=== PATIENT | female | born 1960 | race Caucasian/White ===

== ENCOUNTER 2023-08-11 12:33 | Inpatient (IN) | payer OTHER ==
--- NOTE | 2023-08-11 13:10 | ED ---
General Adult HPI - General Source: patient, RN notes reviewed Mode of arrival: ambulatory Limitations: no limitations <Lakhwinder Masters - Last Filed: 08/11/23 15:06> - General Source: RN notes reviewed, old records reviewed Limitations: no limitations - History of Present Illness -: days(s) Location: chest Radiation: non-radiation Severity scale (1-10): 4 Consistency: constant Improves with: none Worsens with: none Associated Symptoms: chest pain, cough, shortness of breath, weakness Treatments Prior to Arrival: none <Darren Zendejas - Last Filed: 08/17/23 22:03> - General Chief complaint: Upper Respiratory Infection Stated complaint: sob coughing Time Seen by Provider: 08/11/23 13:09 - History of Present Illness Initial comments: 63-year-old female presents emergency Department with chief complaint cough congestion 2 weeks. Patient states she's had increasing shortness of breath. States that she has thick sputum. Patient states that she does not have a history of CABG though she smoked for 20 years has not smoked in 5 years. Patient noted increasing wheezing. Patient reports fever, chills. Patient denies any abdominal pain no leg pain or leg swelling. Patient is not taking any recent Tylenol Motrin. (Lakhwinder Masters) This is a 63-year-old female to the ER for evaluation of chest pain shortness of breath as well as cough and congestion. Patient says it medical history denies any surgical history does have positive history of smoking, no sick contacts no travel history (Darren Zendejas) - Related Data Home Medications Medication Instructions Recorded Confirmed Acetylcysteine [Nac] 500 mg PO DAILY 08/11/23 08/11/23 guaiFENesin-DM 100-10MG/5ML 10 - 20 ml PO Q4H PRN MDD 60 ML 08/11/23 08/11/23 [Robitussin DM] Previous Rx's Medication Instructions Recorded Albuterol Inhaler [Ventolin Hfa 2 puff INHALATION RT-QID PRN 30 08/13/23 Inhaler] Days #1 each dexAMETHasone [Decadron] 6 mg PO DAILY 8 Days #8 tablet 08/13/23 guaiFENesin [Mucinex] 1,200 mg PO Q12HR 10 Days #20 tab 08/13/23 Allergies Allergy/AdvReac Type Severity Reaction Status Date / Time codeine Allergy Hallucinati Verified 08/11/23 12:44 ons doxycycline Allergy Rash/Hives Verified 08/11/23 12:44 Review of Systems ROS Other: All systems not noted in ROS Statement are negative. <TianLakhwinder chinchilla - Last Filed: 08/11/23 15:06> ROS Other: All systems not noted in ROS Statement are negative. <Draren Zendejas - Last Filed: 08/17/23 22:03> ROS Statement: Those systems with pertinent positive or pertinent negative responses have been documented in the HPI. Past Medical History Past Medical History: No Reported History History of Any Multi-Drug Resistant Organisms: None Reported Past Surgical History: No Surgical Hx Reported Past Psychological History: No Psychological Hx Reported Smoking Status: Never smoker Past Alcohol Use History: None Reported Past Drug Use History: None Reported <SonamLakhwinder - Last Filed: 08/11/23 15:06> General Exam General appearance: alert, in no apparent distress Head exam: Present: atraumatic, normocephalic, normal inspection Eye exam: Present: normal appearance, PERRL, EOMI. Absent: scleral icterus, conjunctival injection, periorbital swelling ENT exam: Present: normal exam, normal oropharynx, mucous membranes moist Neck exam: Present: normal inspection, full ROM. Absent: tenderness, meningismus, lymphadenopathy Respiratory exam: Present: wheezes. Absent: normal lung sounds bilaterally, respiratory distress, rales, rhonchi, stridor Cardiovascular Exam: Present: normal rhythm, tachycardia, normal heart sounds. Absent: systolic murmur, diastolic murmur, rubs, gallop, clicks GI/Abdominal exam: Present: soft, normal bowel sounds. Absent: distended, tenderness, guarding, rebound, rigid <Lakhwinder Masters Lexie - Last Filed: 08/11/23 15:06> General appearance: alert, in no apparent distress, anxious Head exam: Present: atraumatic, normocephalic, normal inspection Eye exam: Present: normal appearance, PERRL, EOMI. Absent: scleral icterus, conjunctival injection, periorbital swelling ENT exam: Present: normal exam, mucous membranes moist Neck exam: Present: normal inspection. Absent: tenderness, meningismus, lymphadenopathy Respiratory exam: Present: normal lung sounds bilaterally. Absent: respiratory distress, wheezes, rales, rhonchi, stridor Cardiovascular Exam: Present: regular rate, normal rhythm, normal heart sounds. Absent: systolic murmur, diastolic murmur, rubs, gallop, clicks GI/Abdominal exam: Present: soft, normal bowel sounds. Absent: distended, tenderness, guarding, rebound, rigid Extremities exam: Present: normal inspection, full ROM, normal capillary refill. Absent: tenderness, pedal edema, joint swelling, calf tenderness Back exam: Present: normal inspection Neurological exam: Present: alert, oriented X3, CN II-XII intact Psychiatric exam: Present: normal affect, normal mood Skin exam: Present: warm, dry, intact, normal color. Absent: rash <Darren Zendejas - Last Filed: 08/17/23 22:03> - General Exam Comments Initial Comments: Visual Physical Exam Vital signs reviewed General: Well-appearing, nontoxic, no acute distress. Head: Normocephalic, atraumatic Eyes: PERRLA, EOMI ENT: Airway patent Chest: Nonlabored breathing Skin: No visual rash, normal skin tone Neuro: Alert and oriented 3 Musculoskeletal: No gross abnormalities (Lakhwinder Masters) Course <Darren Zendejas B - Last Filed: 08/17/23 22:03> Vital Signs 08/11/23 08/11/23 08/11/23 12:42 13:53 13:54 Temperature 98.4 F 101.4 F H Pulse Rate 105 H 99 Respiratory 28 H 20 Rate Blood Pressure 100/63 O2 Sat by Pulse 93 L 93 L 93 L Oximetry 08/11/23 08/11/23 08/11/23 13:57 14:00 14:10 Temperature Pulse Rate Respiratory 20 Rate Blood Pressure O2 Sat by Pulse 94 L 91 L Oximetry 08/11/23 08/11/23 08/11/23 14:20 14:23 14:30 Temperature Pulse Rate 92 Respiratory Rate Blood Pressure O2 Sat by Pulse 93 L 98 Oximetry 08/11/23 08/11/23 08/11/23 14:40 14:43 15:58 Temperature 98.5 F Pulse Rate 96 Respiratory Rate Blood Pressure O2 Sat by Pulse 98 Oximetry 08/11/23 08/11/23 08/11/23 16:00 16:10 16:20 Temperature Pulse Rate Respiratory Rate Blood Pressure 116/66 116/66 O2 Sat by Pulse 90 L 90 L 93 L Oximetry 08/11/23 08/11/23 08/11/23 16:30 16:33 16:40 Temperature 99.8 F H Pulse Rate 87 Respiratory 18 Rate Blood Pressure 116/66 117/70 117/70 O2 Sat by Pulse 89 L 94 L 95 Oximetry 08/11/23 08/11/23 08/11/23 16:50 17:00 17:10 Temperature Pulse Rate Respiratory Rate Blood Pressure 117/70 117/70 119/72 O2 Sat by Pulse 95 92 L Oximetry 08/11/23 08/11/23 08/11/23 17:20 17:30 17:40 Temperature Pulse Rate Respiratory Rate Blood Pressure 119/72 119/72 114/66 O2 Sat by Pulse 92 L 93 L 92 L Oximetry 08/11/23 08/11/23 08/11/23 17:50 20:00 21:23 Temperature 99.9 F H 99.9 F H Pulse Rate 66 Respiratory 18 Rate Blood Pressure 114/66 119/65 O2 Sat by Pulse 81 L Oximetry 08/11/23 08/11/23 08/11/23 21:30 21:40 21:50 Temperature Pulse Rate 70 71 73 Respiratory Rate Blood Pressure 119/65 O2 Sat by Pulse Oximetry 08/11/23 08/11/23 08/11/23 22:00 22:10 22:20 Temperature Pulse Rate 74 81 71 Respiratory 18 Rate Blood Pressure O2 Sat by Pulse Oximetry 08/11/23 08/11/23 08/11/23 22:30 22:40 22:50 Temperature Pulse Rate 80 75 70 Respiratory Rate Blood Pressure O2 Sat by Pulse Oximetry 08/12/23 08/12/23 04:40 07:45 Temperature 99 F Pulse Rate 90 88 Respiratory 19 20 Rate Blood Pressure 97/68 93/69 O2 Sat by Pulse 93 L 94 L Oximetry - Reevaluation(s) Reevaluation #1: 08/11/23 22:15 Medical records reviewed (Darren Zendejas) Reevaluation #2: 08/11/23 22:15 Patient still feeling weak and short of breath (Darren Zendejas) Reevaluation #3: 08/11/23 22:15 Patient informed results questions answered (Darren Zendejas) Reevaluation #4: 08/11/23 22:15 Was pt. sent in by a medical professional or institution (HENRI Cohen, MARKETING EXECUTIVE, urgent care, hospital, or intermediate...) When possible be specific @ -no Did you speak to anyone other than the patient for history (EMS, parent, family, police, friend...)? What history was obtained from this source @ -no Did you review nursing and triage notes (agree or disagree)? Why? @ -agree Are old charts reviewed (outside hosp., previous admission, EMS record, old EKG, old radiological studies, urgent care reports/EKG's, intermediate records)? Report findings @ -yes Differential Diagnosis (chest pain, altered mental status, abdominal pain women, abdominal pain men, vaginal bleeding, weakness, fever, dyspnea, syncope, headache, dizziness, GI bleed, back pain, seizure, CVA, palpatations, mental health, musculoskeletal)? @ -prior EKG interpreted by me (3pts min.). @ -yes X-rays interpreted by me (1pt min.). @ -yes CT interpreted by me (1pt min.). @ -yes U/S interpreted by me (1pt. min.). @ -no What testing was considered but not performed or refused? (CT, X-rays, U/S, labs)? Why? @ -none What meds were considered but not given or refused? Why? @ -none Did you discuss the management of the patient with other professionals (professionals i.e. HENRI Cohen, MARKETING EXECUTIVE, lab, RT, psych nurse, social organization professor, manager heart, teacher, staff weapons officer, rn case manager hospice)? Give summary @ -no Was smoking cessation discussed for >3mins.? @ -no Was critical care preformed (if so, how long)? @ -no Were there social determinants of health that impacted care today? How? (Homelessness, low income, unemployed, alcoholism, drug addiction, transportat ion, low edu. Level, literacy, decrease access to med. care, half-way, rehab)? @ -none Was there de-escalation of care discussed even if they declined (Discuss DNR or withdrawal of care, Hospice)? DNR status @ -no What co-morbidities impacted this encounter? (DM, HTN, Smoking, COPD, CAD, Cancer, CVA, ARF, Chemo, Hep., AIDS, mental health diagnosis, sleep apnea, morbid obesity)? @ -none Was patient admitted / discharged? Hospital course, mention meds given and route, prescriptions, significant lab abnormalities, going to OR and other pertinent info. @ - 63 female will be admitted for pneumonia, coronavirus, lung mass with hyponatremia. Patient be admitted for further evaluation management Admitted Undiagnosed new problem with uncertain prognosis? @ -no Drug Therapy requiring intensive monitoring for toxicity (Heparin, Nitro, Insulin, Cardizem)? @ -no Were any procedures done? @ -no Diagnosis/symptom? @ -Pneumonia coronavirus with lung mass Acute, or Chronic, or Acute on Chronic? @ -Acute Uncomplicated (without systemic symptoms) or Complicated (systemic symptoms)? @ -Complicated Side effects of treatment? @ -no Exacerbation, Progression, or Severe Exacerbation? @ -exacerbation Poses a threat to life or bodily function? How? (Chest pain, [place], [place], pneumonia, PE, COPD, DKA, ARF, appy, cholecystitis, CVA, Diverticulitis, Homicidal, Suicidal, threat to staff... and all critical care pts) @ -yes with significant rust for disease (Darren Zendejas) Reevaluation #5: 08/11/23 22:16 Differential Dyspnea: Coronary syndrome, arrhythmia, tamponade, asthma, COPD, pulmonary embolism, pneumonia, pneumothorax, pulmonary effusion, anaphylaxis, diabetic ketoacidosis, flailed chest, pulmonary contusion, diaphragmatic rupture, anemia, neuromuscular, this is not meant to be an all-inclusive list. (Darren Zendejas) - Consultations Consultation #1: Spoke with [facility] were agrees to admit this patient (Darren Zendejas) Medical Decision Making - Lab Data Result diagrams: 08/11/23 13:52 08/11/23 13:52 - EKG Data -: EKG Interpreted by Me <Lakhwinder Masters - Last Filed: 08/11/23 15:06> - Lab Data Result diagrams: 08/13/23 06:36 08/13/23 06:36 - EKG Data -: EKG Interpreted by Me - Radiology Data Radiology results: report reviewed (Chest x-ray CT chest show likely lung mass), image reviewed <Darren Zendejas - Last Filed: 08/17/23 22:03> - Medical Decision Making I performed a quick note portion of this chart signed Lakhwinder Masters PA-C (Lakhwinder Masters) 63 female will be admitted for pneumonia, coronavirus, lung mass with hyponatremia. Patient be admitted for further evaluation management (Darren Zendejas) - Lab Data Lab Results 08/11/23 08/11/23 08/11/23 Range/Units 13:52 13:52 13:52 WBC 12.2 H (3.8-10.6) k/uL RBC 4.85 (3.80-5.40) m/uL Hgb 15.2 (11.4-16.0) gm/dL Hct 44.0 (34.0-46.0) % MCV 90.7 (80.0-100.0) fL MCH 31.2 (25.0-35.0) pg MCHC 34.5 (31.0-37.0) g/dL RDW 12.4 (11.5-15.5) % Plt Count 401 (150-450) k/uL MPV 7.7 Neutrophils % 76 % Lymphocytes % 12 % Monocytes % 8 % Eosinophils % 1 % Basophils % 0 % Neutrophils # 9.2 H (1.3-7.7) k/uL Lymphocytes # 1.4 (1.0-4.8) k/uL Monocytes # 1.0 (0-1.0) k/uL Eosinophils # 0.1 (0-0.7) k/uL Basophils # 0.0 (0-0.2) k/uL Sodium 129 L (137-145) mmol/L Potassium 4.1 (3.5-5.1) mmol/L Chloride 90 L (98-107) mmol/L Carbon Dioxide 27 (22-30) mmol/L Anion Gap 12 mmol/L BUN 10 (7-17) mg/dL Creatinine 0.62 (0.52-1.04) mg/dL Est GFR (CKD-EPI)AfAm >90 (>60 ml/min/1.73 sqM) Est GFR (CKD-EPI)NonAf >90 (>60 ml/min/1.73 sqM) Glucose 109 H (74-99) mg/dL Plasma Lactic Acid John 1.5 (0.7-2.0) mmol/L Calcium 9.2 (8.4-10.2) mg/dL Total Bilirubin 0.7 (0.2-1.3) mg/dL AST 46 H (14-36) U/L ALT 49 H (4-34) U/L Alkaline Phosphatase 99 (38-126) U/L NT-Pro-B Natriuret Pep 264 pg/mL Total Protein 6.7 (6.3-8.2) g/dL Albumin 3.9 (3.5-5.0) g/dL Influenza Type A (PCR) (Not Detectd) Influenza Type B (PCR) (Not Detectd) RSV (PCR) (Not Detectd) SARS-CoV-2 (PCR) (Not Detectd) 08/11/23 Range/Units 13:52 WBC (3.8-10.6) k/uL RBC (3.80-5.40) m/uL Hgb (11.4-16.0) gm/dL Hct (34.0-46.0) % MCV (80.0-100.0) fL MCH (25.0-35.0) pg MCHC (31.0-37.0) g/dL RDW (11.5-15.5) % Plt Count (150-450) k/uL MPV Neutrophils % % Lymphocytes % % Monocytes % % Eosinophils % % Basophils % % Neutrophils # (1.3-7.7) k/uL Lymphocytes # (1.0-4.8) k/uL Monocytes # (0-1.0) k/uL Eosinophils # (0-0.7) k/uL Basophils # (0-0.2) k/uL Sodium (137-145) mmol/L Potassium (3.5-5.1) mmol/L Chloride (98-107) mmol/L Carbon Dioxide (22-30) mmol/L Anion Gap mmol/L BUN (7-17) mg/dL Creatinine (0.52-1.04) mg/dL Est GFR (CKD-EPI)AfAm (>60 ml/min/1.73 sqM) Est GFR (CKD-EPI)NonAf (>60 ml/min/1.73 sqM) Glucose (74-99) mg/dL Plasma Lactic Acid John (0.7-2.0) mmol/L Calcium (8.4-10.2) mg/dL Total Bilirubin (0.2-1.3) mg/dL AST (14-36) U/L ALT (4-34) U/L Alkaline Phosphatase (38-126) U/L NT-Pro-B Natriuret Pep pg/mL Total Protein (6.3-8.2) g/dL Albumin (3.5-5.0) g/dL Influenza Type A (PCR) Not Detected (Not Detectd) Influenza Type B (PCR) Not Detected (Not Detectd) RSV (PCR) Not Detected (Not Detectd) SARS-CoV-2 (PCR) Detected A (Not Detectd) - EKG Data EKG Comments: EKG performed at 13:38 sinus rhythm rate of 93 MI 134 QRS 81 QT / QTC 3:30/381 (Lakhwinder Masters) Disposition <Lakhwinder Masters - Last Filed: 08/11/23 15:06> Is patient prescribed a controlled substance at d/c from ED?: No Time of Disposition: 20:15 <Darren Zendejas - Last Filed: 08/17/23 22:03> Clinical Impression: Coronavirus infection, Pneumonia, Lung mass, Mass of upper lobe of left lung, Hyponatremia Disposition: ADMITTED IP TO THIS HOSP Condition: Fair
[2023-08-11] MEDS ORDERED: IPRATROPIUM-ALBUTEROL 3 ML NEB INHALATION STA (13:28)
[2023-08-11 14:11] LABS: Basophils % (A) 0 %; Eosinophils # (A) 0.1 k/uL (0-0.7); Eosinophils % (A) 1 %; HGB 15.2 gm/dL (11.4-16.0); Lymphocytes # (A) 1.4 k/uL (1.0-4.8); Lymphocytes % (A) 12 %; MCH 31.2 pg (25.0-35.0); MCHC 34.5 g/dL (31.0-37.0); MCV 90.7 fL (80.0-100.0); Mean Platelet Volume 7.7; Monocytes % (A) 8 %; Neutrophils # (A) 9.2 k/uL (1.3-7.7); Neutrophils % (A) 76 %; Platelet Count 401 k/uL (150-450); RBC 4.85 m/uL (3.80-5.40); RDW 12.4 % (11.5-15.5); WBC 12.2 k/uL (3.8-10.6)
[2023-08-11 14:13] LABS: ALT 49 U/L (4-34); AST 46 U/L (14-36); African American GFR (CKD) >90 (>60 ml/min/1.73 sqM); Albumin 3.9 g/dL (3.5-5.0); Alkaline Phosphatase 99 U/L (38-126); Anion Gap 12 mmol/L; Blood Urea Nitrogen 10 mg/dL (7-17); Calcium 9.2 mg/dL (8.4-10.2); Carbon Dioxide 27 mmol/L (22-30); Chloride 90 mmol/L (98-107); Glucose 109 mg/dL (74-99); Non-African American GFR(CKD) >90 (>60 ml/min/1.73 sqM); Potassium 4.1 mmol/L (3.5-5.1); Sodium 129 mmol/L (137-145); Total Bilirubin 0.7 mg/dL (0.2-1.3); Total Protein 6.7 g/dL (6.3-8.2)
[2023-08-11 14:22] LABS: NT-Pro-B-Type Natriuretic Pept 264 pg/mL
--- NOTE | 2023-08-11 14:25 | XR ---
EXAMINATION TYPE: XR chest 2V DATE OF EXAM: 08/11/2023 2:18 PM COMPARISON: None TECHNIQUE: XR chest 2V Frontal and lateral views of the chest. CLINICAL INDICATION:Female, 63 years old with history of sob; FINDINGS: Lungs/Pleura: Hyperinflation with flattening of the hemidiaphragms consistent with COPD. No pleural e ffusion, focal studies, pneumothorax. Linear scarring within the right midlung. Right perihilar 6.7 c m mass. Pulmonary vascularity: Unremarkable. Heart/mediastinum: Cardiomediastinal silhouette is unremarkable. Atherosclerotic calcifications are seen in the aorta. Musculoskeletal: No acute osseous pathology. IMPRESSION: Background COPD changes with right perihilar 6.7 cm mass highly concerning for primary lung malignanc y. Further evaluation with CT chest with IV contrast is recommended.
[2023-08-11] MEDS ORDERED: RX INFO: IV CONTRAST WAS GIVEN 1 EACH MISC MISCELLANE PRN (14:29)
[2023-08-11] MEDS ORDERED: ACETAMINOPHEN TAB 325 MG TAB PO STA (14:44)
--- NOTE | 2023-08-11 16:13 | CT ---
EXAMINATION TYPE: CT chest w con CT DLP: 214.4 mGycm, Automated exposure control for dose reduction was used. DATE OF EXAM: 08/11/2023 3:06 PM COMPARISON: Chest radiograph from same day. CLINICAL INDICATION:Female, 63 years old with history of lung mass; PH, TECHNIQUE: Multiple axial images were obtained through the chest following the administration of 100 cc of Isovue 300. . Coronal and sagittal reformats reviewed. FINDINGS: LUNGS/ PLEURA: No pleural effusion or pneumothorax. Moderate centrilobular emphysematous changes. Sca ttered regions of reticular opacities throughout the lungs most prominently within the anterior right upper lobes and superior segment of the right lower lobe. There is a round 5.3 x 4.8 cm mass within the superior segment of the right right lower lobe that abuts the pulmonary hilum (series 201, image 29). There are 2 central round calcifications identified. This appears to demonstrate some heterogen ous macroscopic fat. Additional medial left upper lobe masslike consolidation measuring 3.0 x 1.4 cm (series 21, image 28).. AIRWAY: Patent and unremarkable.. HEART: Size within normal limits. No pericardial effusion. Small coronary artery calcifications. MEDIASTINUM: No gross evidence of adenopathy. VASCULATURE: No aortic aneurysm. Mild atherosclerotic calcification of the aorta and its branches. MUSCULOSKELETAL: No acute osseous abnormalities. No aggressive osseous lesion. SOFT TISSUES/LYMPH NODES: Unremarkable. LOWER NECK: No significant findings. UPPER ABDOMEN: Subcentimeter hypodense foci which are too small characterize within the liver. Left a drenal gland 2.0 cm nodule with a Hounsfield unit of -13 consistent with a lipid rich adenoma. Indete rminate right adrenal gland 1.2 cm nodule with a Hounsfield unit of 83. IMPRESSION: 1. Medial left upper lobe masslike consolidation measuring 3.0 cm. Additional round right perihilar s uperior segment lower lobe 5.3 cm mass with regions of fat attenuation. This may represent a benign h amartoma versus other etiologies. Further evaluation with PET/CT is recommended. 2. Moderate COPD changes with scattered reticular opacities which may represent scarring and/or infec tious/inflammatory process. 3. 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 Further evaluation with CT abdomen adrenal mass protocol is recommended.
[2023-08-11] MEDS ORDERED: ONDANSETRON 4 MG/2 ML VIAL IVP PRN (20:11)
[2023-08-11] MEDS ORDERED: NALOXONE 0.4 MG/ML 1 ML VIAL IV PRN (20:11)
[2023-08-11] MEDS ORDERED: HYDROmorphone 1 MG/ML 1 ML SYRINGE IVP PRN (20:11)
[2023-08-11] MEDS: SODIUM CHLORIDE 0.9% 1,000 ML IV SCH (21:17)
[2023-08-11] MEDS ORDERED: AZITHROMYCIN 500 MG in SODIUM CHLORIDE 0.9% 250 ML IVPB STA (22:17)
[2023-08-12] MEDS ORDERED: ALBUTEROL HFA INHALER INHALATION PRN (01:37)
[2023-08-12] MEDS: guaiFENesin 600 MG TABLET.ER PO SCH ×3 (02:07→20:48)
--- NOTE | 2023-08-12 07:03 | P.CNPUL ---
History of Present Illness Consult date: 08/12/23 Requesting physician: Maximus Padron Reason for consult: lung mass Chief complaint: URI like symptoms History of present illness: I am seeing this patient in consultation today 08/12/2023 in the emergency room after she presented with URI like symptoms yesterday afternoon. She did test positive for COVID-19. Chest CT demonstrated lung masses. Patient is a 63-year-old white female with a limited past known medical history. She does not have a primary care provider. She does smoke cigarettes, approximately 5 per day. Patient states that she recently traveled to [place]. She then became sick with URI like symptoms such as nasal congestion and drainage, sore throat, cough. The symptoms progressively became worse, and she came to the emergency room yesterday afternoon. Patient is currently sitting in bed, on room air, in no acute respiratory distress. She does have a congested cough. She did test positive for COVID-19. She is not vaccinated for COVID-19. She denies any rec ent weight loss. She does have ongoing tobacco use. Denies any chest pain, hemoptysis. Initial chest x-ray showed a large right perihilar 6.7 cm mass. Follow-up chest CT demonstrated a 5.3 x 4.8 cm mass within the superior segment of the right lower lobe that abuts the pulmonary hilum. There were 2 central round calcifications identified, and possible heterogenesis fat. There was also an additional left upper lobe medial masslike consolidation measuring 3 x 1.4 cm. There is also left adrenal gland 2 cm adenoma. With an additional right 1.2 cm indeterminate nodule. Patient also had moderate COPD changes with scattered reticular opacities which may represent scarring and/or infectious /inflammatory process. Patient has been febrile, with a T-max of 101.4F. CBC shows some mild leukocytosis with a WBC count of 12.2, hemoglobin 15.2, hematocrit 44, platelets 401. BNP shows sodium 129, potassium 4.1, chloride 90, serum bicarb 27, BUN 10, creatinine 1.62, glucose 109. Lactic acid level I.5. Normal saline is infusing at 75 mL per hour. Patient was started on empiric antibiotics in the form of azithromycin and Rocephin. Patient is being admitted to the general medical floor. Review of Systems REVIEW OF SYSTEMS: CONSTITUTIONAL: Denies any recent significant weight loss or weight gain. EYES: Denies change in vision. EARS, NOSE, MOUTH, THROAT: Denies headaches, denies sore throat. CARDIOVASCULAR: Denies chest pain, palpitations or syncopal episodes. RESPIRATORY: See HPI GASTROINTESTINAL: Denies change in appetite, abdominal pain, nausea and vomiting, or diarrhea GENITOURINARY: Denies hematuria, denies infections. MUSKULOSKELETAL: Denies pain, denies swelling. INTEGUMENTARY: Denies rash, denies eczema. NEUROLOGICAL: Denies recent memory loss, no recent seizure activity. PSYCHIATRIC: Denies anxiety, denies depression. HEMATOLOGIC/LYMPHATIC: Denies anemia, denies enlarged lymph node Past Medical History Past Medical History: No Reported History History of Any Multi-Drug Resistant Organisms: None Reported Past Surgical History: No Surgical Hx Reported Past Psychological History: No Psychological Hx Reported Smoking Status: Never smoker Past Alcohol Use History: None Reported Past Drug Use History: None Reported Medications and Allergies Home Medications Medication Instructions Recorded Confirmed Type Acetylcysteine [Nac] 500 mg PO DAILY 08/11/23 08/11/23 History guaiFENesin-DM 100-10MG/5ML 10 - 20 ml PO Q4H PRN MDD 60 ML 08/11/23 08/11/23 History [Robitussin DM] Allergies Allergy/AdvReac Type Severity Reaction Status Date / Time codeine Allergy Hallucinati Verified 08/11/23 12:44 ons doxycycline Allergy Rash/Hives Verified 08/11/23 12:44 Physical Exam Vitals: Vital Signs Temp Pulse Resp BP Pulse Ox 08/12/23 04:40 99 F 90 19 97/68 93 L 08/11/23 22:50 70 08/11/23 22:40 75 08/11/23 22:30 80 08/11/23 22:20 71 18 08/11/23 22:10 81 08/11/23 22:00 74 08/11/23 21:50 73 08/11/23 21:40 71 08/11/23 21:30 70 119/65 08/11/23 21:23 99.9 F H 66 18 119/65 08/11/23 20:00 99.9 F H 08/11/23 17:50 114/66 81 L 08/11/23 17:40 114/66 92 L 08/11/23 17:30 119/72 93 L 08/11/23 17:20 119/72 92 L 08/11/23 17:10 119/72 92 L 08/11/23 17:00 117/70 08/11/23 16:50 117/70 95 08/11/23 16:40 117/70 95 08/11/23 16:33 99.8 F H 87 18 117/70 94 L 08/11/23 16:30 116/66 89 L 08/11/23 16:20 116/66 93 L 08/11/23 16:10 116/66 90 L 08/11/23 16:00 90 L 08/11/23 15:58 98.5 F 08/11/23 14:43 96 08/11/23 14:40 98 08/11/23 14:30 98 08/11/23 14:23 92 08/11/23 14:20 93 L 08/11/23 14:10 91 L 08/11/23 14:00 94 L 08/11/23 13:57 20 08/11/23 13:54 101.4 F H 99 20 93 L 08/11/23 13:53 93 L 08/11/23 12:42 98.4 F 105 H 28 H 100/63 93 L Intake and Output 08/11/23 08/11/23 08/12/23 14:59 22:59 06:59 Other: Weight 58.967 kg GENERAL EXAM: Alert, 63-year-old female, frail , fairly comfortable in no apparent distress. She does have congested cough. HEAD: Normocephalic and atraumatic EYES: Normal reaction of pupils, equal size. NOSE: Clear with pink turbinates. THROAT: No erythema or exudates. NECK: No masses, no JVD. CHEST: No chest wall deformity. LUNGS: Equal air entry with coarse rhonchi heard throughout. On room air. No conversational dyspnea or accessory muscle use.. CVS: S1 and S2 normal with no audible murmur, regular rhythm. No extra heart sounds ABDOMEN: No hepatosplenomegaly, active bowel sounds, no guarding or rigidity. SPINE: No scoliosis or deformity SKIN: No rashes CENTRAL NERVOUS SYSTEM: No focal deficits, tone is normal in all 4 extremities. EXTREMITIES: There is no peripheral edema, clubbing, or cyanosis. Peripheral pulses are intact. Results - Laboratory Findings CBC and BMP: 11/14/23 05:46 08/12/23 05:46 Abnormal lab findings: Abnormal Labs 08/11/23 08/11/23 08/11/23 13:52 13:52 13:52 WBC 12.2 H Neutrophils # 9.2 H Sodium 129 L Chloride 90 L Glucose 109 H AST 46 H ALT 49 H SARS-CoV-2 (PCR) Detected A - Diagnostic Findings Chest x-ray: image reviewed CT scan - chest: image reviewed Assessment and Plan Assessment: Acute COVID-19 infection, no prior vaccination and this is her second infection Leukocytosis, secondary to above Pulmonary mass, Chest CT demonstrated a 5.3 x 4.8 cm mass within the superior segment of the right lower lobe that abuts the pulmonary hilum. There were 2 central round calcifications identified and possible heterogenesis fat. This may represent hamartoma vs other etiologies. There was also an additional left upper lobe medial masslike consolidation measuring 3 x 1.4 cm. Underlying malignancy is not ruled out Hypernatremia, possibly SIADH, improving Chronic ongoing tobacco dependence Plan: Patient's medications, labs, chest x-ray reviewed Currently on room air Add Mucinex for congested cough Continue empiric antibiotics in the form of azithromycin and Rocephin. Procalcitonin level ordered. CT results will be discussed with Dr. Padron in the morning. Underlying malignancy is not ruled out. Further recommendations are forthcoming. Patient is going to be admitted to the general medical floor. I have personally seen and examined the patient, performed the documentation and the assessment and plan as written. Number of minutes spent on the visit:20. This is a joint evaluation that was done along with the nurse practitioner. The patient is a chronic smoker with a [id number] smoking history patient is coming in for an acute Covid 19 infection. This is her second infection with Covid 19 and the patient has received no prior vaccination. CAT scan of the chest was reviewed and the patient has a 5.3 x 4.8 cm mass which is probably posterior segment of the right upper lobe and its extending into the superior segment of the right lower lobe. This has very smooth borders and central calc ification. Possibility of malignancy cannot be completely ruled out. The patient will need an outpatient PET/CT and subsequent biopsies. For now, we will manage her Covid 19 infection. We'll check pro calcitonin level. Check LDH. Check d-dimer and the patient will be treated with Decadron 6 mg IV every 24 hours. We'll continue to follow. Condition was done in more than 30 minutes. Time with Patient: Greater than 30
[2023-08-12] MEDS: PANTOPRAZOLE 40 MG/10 ML VIAL IV SCH (08:31)
[2023-08-12 08:50] LABS: ALT 56 U/L (8-44); AST 44 U/L (13-35); Albumin 3.4 g/dL (3.8-4.9); Albumin/Globulin Ratio 1.48 Ratio (1.60-3.17); Alkaline Phosphatase 81 U/L (41-126); BUN/Creat Ratio 9.17 Ratio (12.00-20.00); Blood Urea Nitrogen 5.5 mg/dL (9.0-27.0); Calcium 9.1 mg/dL (8.7-10.3); Carbon Dioxide 29.8 mmol/L (21.6-31.8); Chloride 92 mmol/L (96-109); Globulin 2.3 g/dL (1.6-3.3); Glucose 113 mg/dL (70-110); Magnesium 2.2 mg/dL (1.5-2.4); Phosphorus 3.8 mg/dL (2.4-5.1); Potassium 4.1 mmol/L (3.5-5.5); Sodium 132 mmol/L (135-145); Total Bilirubin <0.2 mg/dL (0.3-1.2); Total Protein 5.7 g/dL (6.2-8.2)
[2023-08-12] MEDS ORDERED: guaiFENesin 600 MG TABLET.ER PO SCH (09:00)
[2023-08-12 09:33] LABS: HGB 13.6 g/dL (12.0-15.0); MCH 30.3 pg (27.0-32.0); MCHC 33.2 g/dL (32.0-37.0); MCV 91.3 FL (80.0-97.0); NRBC Per 100 WBC 0 X 10*3/uL (0.00-0.01); Platelet Count 381 X 10*3/uL (140-440); RBC 4.49 X 10*6/uL (4.10-5.20); RDW 12.8 % (11.5-14.5); WBC 11.38 X 10*3/uL (4.50-10.00)
[2023-08-12 10:11] LABS: Basophils # (A) 0.05 X 10*3/uL (0.00-0.10); Basophils % (A) 0.4 %; Eosinophils # (A) 0.11 X 10*3/uL (0.04-0.35); Lymphocytes # (A) 1.32 X 10*3/uL (0.90-5.00); Lymphocytes % (A) 11.6 %; Monocytes # (A) 1.89 X 10*3/uL (0.20-1.00); Monocytes % (A) 16.6 %; Neutrophils # (A) 7.84 X 10*3/uL (1.80-7.70); Neutrophils % (A) 68.9 %
[2023-08-12] MEDS: DEXAMETHASONE SOD PHOSPHATE 10 MG/ML 1 ML VIAL IVP SCH (10:51)
[2023-08-12] MEDS: SODIUM CHLORIDE 0.9% 1,000 ML IV SCH ×2 (13:17→20:48)
[2023-08-12] MEDS ORDERED: ENOXAPARIN 30 MG/0.3 ML SYRINGE SQ SCH (13:30)
[2023-08-12] MEDS ORDERED: DEXTROSE 50% SYRINGE 50 ML IVP PRN ×2 (13:31)
[2023-08-12 16:21] LABS: Glucose,Whole Blood 200 mg/dL (70-110)
[2023-08-12] MEDS: INSULIN ASPART (NovoLOG) 100 UNIT/ML VIAL SQ SCH ×2 (16:41→22:15)
[2023-08-12 21:45] LABS: Glucose,Whole Blood 170 mg/dL (70-110)
[2023-08-12] MEDS ORDERED: AZITHROMYCIN 500 MG in SODIUM CHLORIDE 0.9% 250 ML IVPB SCH (22:00)
--- NOTE | 2023-08-12 23:51 | HP ---
HISTORY AND PHYSICAL CHIEF COMPLAINTS: Upper respiratory symptoms and lung mass. HISTORY OF PRESENT ILLNESS: This is a 63-year-old woman with no significant medical illness, was complaining of upper respiratory illness for the last 2 to 3 weeks. The patient came to [facility] because of lack of improvement. The patient was admitted for further evaluation and treatment. D-dimer was elevated and COVID-19 was positive. The patient is unvaccinated and CAT scan of the chest was done, which I reviewed personally, which showed significant lesions, especially on the left upper lobe like a mass-like consolidation as well as right perihilar area. The patient was admitted for evaluation and treatment. Adrenal gland abnormalities were also noted. There is no history of any fever, rigors, or chills at this time. PAST MEDICAL HISTORY: No significant medical or cardiovascular illness. MEDICATIONS: Home medications are . ALLERGIES: Codeine and doxycycline. FAMILY HISTORY: No history of heart disease or strokes in the family. SOCIAL HISTORY: No history of smoking or alcohol intake. REVIEW OF SYSTEMS: Fourteen-point review of systems is negative except as mentioned earlier. PHYSICAL EXAMINATION: VITAL SIGNS: Pulse is 90, blood pressure 97/68, respirations 19. HEENT: Conjunctivae normal. NECK: No jugular venous distention. CARDIOVASCULAR: S1, S2. RESPIRATIONS: Few scattered rhonchi. ABDOMEN: Soft. NERVOUS SYSTEM: No focal deficits. SKIN: No ulcer, rash, or bleeding. JOINTS: No active deforming arthropathy. LABORATORY DATA: Noted. ASSESSMENT: 1. Acute COVID-19 infection with acute COVID-19 pneumonia possibly. 2. Left hilar mass, possibly lung malignancy versus mass-like consolidation. 3. Increased WBC. 4. Elevated D-dimer with no evidence of pulmonary embolus. 5. Hyponatremia. 6. Elevated AST and ALT. 7. Elevated procalcitonin. RECOMMENDATIONS AND DISCUSSION: This 63-year-old woman presented with multiple complex medical issues. We will monitor the patient closely. I would recommend empiric antibiotics and medications for COVID. Follow closely with Pulmonology. Infectious Disease evaluation. Dr. Padron from Pulmonary has seen the patient. Recommend outpatient PET-CT scan and biopsies. IV steroids have also been recommended. We will monitor the blood sugars closely. The prognosis is guarded because of multiple complex medical issues. Further recommendations to follow. See orders for further details. MMODL / IJN: [id number] / BITA
[2023-08-13 05:10] LABS: Glucose,Whole Blood 125 mg/dL (70-110)
[2023-08-13] MEDS: INSULIN ASPART (NovoLOG) 100 UNIT/ML VIAL SQ SCH ×2 (05:14→12:35)
[2023-08-13 08:01] VITALS: RESP 17
[2023-08-13] MEDS: guaiFENesin 600 MG TABLET.ER PO SCH (08:28)
[2023-08-13] MEDS ORDERED: ENOXAPARIN 40 MG/0.4 ML SYRINGE SQ SCH (09:00)
[2023-08-13] MEDS: PANTOPRAZOLE 40 MG/10 ML VIAL IV SCH (09:55)
[2023-08-13] MEDS: DEXAMETHASONE SOD PHOSPHATE 10 MG/ML 1 ML VIAL IVP SCH (09:55)
[2023-08-13] MEDS: SODIUM CHLORIDE 0.9% 1,000 ML IV SCH (12:14)
[2023-08-13 12:25] LABS: Glucose,Whole Blood 112 mg/dL (70-110)
[2023-08-13 14:01] LABS: BUN/Creat Ratio 13.67 Ratio (12.00-20.00); Blood Urea Nitrogen 8.2 mg/dL (9.0-27.0); Calcium 9.3 mg/dL (8.7-10.3); Carbon Dioxide 25.5 mmol/L (21.6-31.8); Chloride 99 mmol/L (96-109); Glucose 119 mg/dL (70-110); Sodium 138 mmol/L (135-145)
--- NOTE | 2023-08-13 14:21 | US ---
EXAMINATION TYPE: US venous doppler duplex LE BI DATE OF EXAM: 08/13/2023 1:53 PM COMPARISON: NONE CLINICAL INDICATION: Female, 63 years old with history of covid, assess for dvt; elevated d-dimer, no leg symptoms SIDE PERFORMED: Bilateral TECHNIQUE: The lower extremity deep venous system is examined utilizing real time linear array sonog aydin with graded compression, doppler sonography and color-flow sonography. VESSELS IMAGED: Common Femoral Vein Deep Femoral Vein Greater Saphenous Vein * Femoral Vein Popliteal Vein Small Saphenous Vein * Proximal Calf Veins (* superficial vessels) Right Leg: Negative for DVT - rouleaux flow Left Leg: Negative for DVT - rouleaux flow IMPRESSION: 1. Lower extremity ultrasound negative for deep venous thrombosis. 2. Low flow is present bilaterally. Impending thrombus formation should be considered.
[2023-08-13 15:10] VITALS: BP 112/65; PULSE 68; TEMP 97.6
--- NOTE | 2023-08-13 15:56 | P.PN ---
Subjective Progress Note Date: 08/13/23 I am seeing this patient in consultation today 08/12/2023 in the emergency room after she presented with URI like symptoms yesterday afternoon. She did test positive for COVID-19. Chest CT demonstrated lung masses. Patient is a 63-year-old white female with a limited past known medical history. She does not have a primary care provider. She does smoke cigarettes, approximately 5 per day. Patient states that she recently traveled to [place]. She then became sick with URI like symptoms such as nasal congestion and drainage, sore throat, cough. The symptoms progressively became worse, and she came to the emergency room yesterday afternoon. Patient is currently sitting in bed, on room air, in no acute respiratory distress. She does have a congested cough. She did test positive for COVID-19. She is not vaccinated for COVID-19. She denies any recent weight loss. She does have ongoing tobacco use. Denies any chest pain, hemoptysis. Initial chest x-ray showed a large right perihilar 6.7 cm mass. Follow-up chest CT demonstrated a 5.3 x 4.8 cm mass within the superior segment of the right lower lobe that abuts the pulmonary hilum. There were 2 central round calcifications identified, and possible heterogenesis fat. There was also an additional left upper lobe medial masslike consolidation measuring 3 x 1.4 cm. There is also left adrenal gland 2 cm adenoma. With an additional right 1.2 cm indeterminate nodule. Patient also had moderate COPD changes with scattered reticular opacities which may represent scarring and/or infectious/inflammatory process. Patient has been febrile, with a T-max of 101.4F. CBC shows some mild leukocytosis with a WBC count of 12.2, hemoglobin 15.2, hematocrit 44, platelets 401. BNP shows sodium 129, potassium 4.1, chloride 90, serum bicarb 27, BUN 10, creatinine 1.62, glucose 109. Lactic acid level I.5. Normal saline is infusing at 75 mL per hour. Patient was started on empiric antibiotics in the form of azithromycin and Rocephin. Patient is being admitted to the general medical floor. On today's evaluation of and 2022, the patient is feeling improved and she is not having any significant shortness of breath. No fever. No chills. Hemodynamically stable. No nausea or emesis. The blood work shows a sodium level of 138, BUN is at 8.2 with a creatinine of 0.6. Pro-calcitonin level is at 0.09. The LDH is 258. D-dimer is at 1.01. Patient is currently on room air oxygen with a pulse ox of 95%. She remains on Decadron. Objective - Vital Signs Vital signs: Vital Signs Temp 97.8 F 08/13/23 07:16 Pulse 63 08/13/23 07:16 Resp 17 08/13/23 07:16 BP 121/50 08/13/23 07:16 Pulse Ox 94 L 08/13/23 07:16 FiO2 Intake & Output 08/12/23 08/13/23 08/13/23 18:59 06:59 18:59 Weight 58.967 kg Other: Voiding Method Toilet Toilet # Voids 3 1 - Exam GENERAL EXAM: Alert, 63-year-old female, frail , fairly comfortable in no apparent distress. She does have congested cough. HEAD: Normocephalic and atraumatic EYES: Normal reaction of pupils, equal size. NOSE: Clear with pink turbinates. THROAT: No erythema or exudates. NECK: No masses, no JVD. CHEST: No chest wall deformity. LUNGS: Equal air entry with coarse rhonchi heard throughout. On room air. No conversational dyspnea or accessory muscle use.. CVS: S1 and S2 normal with no audible murmur, regular rhythm. No extra heart sounds ABDOMEN: No hepatosplenomegaly, active bowel sounds, no guarding or rigidity. SPINE: No scoliosis or deformity SKIN: No rashes CENTRAL NERVOUS SYSTEM: No focal deficits, tone is normal in all 4 extremities. EXTREMITIES: There is no peripheral edema, clubbing, or cyanosis. Peripheral pulses are intact. - Labs CBC & Chem 7: 08/12/23 05:46 08/13/23 06:36 Labs: Abnormal Lab Results - Last 24 Hours (Table) 08/12/23 08/12/23 08/12/23 Range/Units 10:04 16:19 21:44 POC Glucose (mg/dL) 200 H 170 H (70-110) mg/dL Lactate Dehydrogenase 258 H (120-246) U/L 08/13/23 Range/Units 05:09 POC Glucose (mg/dL) 125 H (70-110) mg/dL Lactate Dehydrogenase (120-246) U/L Assessment and Plan Assessment: Acute COVID-19 infection, no prior vaccination and this is her second infection Leukocytosis, secondary to above Pulmonary mass, Chest CT demonstrated a 5.3 x 4.8 cm mass within the superior segment of the right lower lobe that abuts the pulmonary hilum. There were 2 central round calcifications identified and possible heterogenesis fat. This may represent hamartoma vs other etiologies. There was also an additional left upper lobe medial masslike consolidation measuring 3 x 1.4 cm. Underlying malignancy is not ruled out Hypernatremia, possibly SIADH, improving Chronic ongoing tobacco dependence Plan: Complete a ten-day course of Decadron Overall condition stable and the patient can be discharged home today Workup for the pulmonary lesion on outpatient basis CAT scan of the chest was reviewed and the patient has a 5.3 x 4.8 cm mass which is probably posterior segment of the right upper lobe and its extending into the superior segment of the right lower lobe. This has very smooth borders and central calcification. Possibility of malignancy cannot be completely ruled out. The patient will need an outpatient PET/CT and subsequent biopsies. Overall condition is stable and the patient to be discharged home today to be followed up on outpatient basis post Covid in for further workup regarding her lung mass.
[2023-08-13 16:38] LABS: Basophils % (A) 0.8 %; Eosinophils # (A) 0 X 10*3/uL (0.04-0.35); Eosinophils % (A) 0 %; HCT 40.8 % (37.2-46.3); HGB 13.3 g/dL (12.0-15.0); Lymphocytes # (A) 1.53 X 10*3/uL (0.90-5.00); Lymphocytes % (A) 11.7 %; MCH 30.6 pg (27.0-32.0); MCHC 32.6 g/dL (32.0-37.0); MCV 93.8 FL (80.0-97.0); Mean Platelet Volume 10.2 FL (9.5-12.2); Monocytes # (A) 1.29 X 10*3/uL (0.20-1.00); Monocytes % (A) 9.9 %; NRBC Per 100 WBC 0 X 10*3/uL (0.00-0.01); Neutrophils % (A) 75.2 %; Platelet Count 462 X 10*3/uL (140-440); RBC 4.35 X 10*6/uL (4.10-5.20); WBC 13.03 X 10*3/uL (4.50-10.00)
--- NOTE | 2023-08-15 09:45 | P.DS ---
Providers Date of admission: 08/11/23 20:11 Expected date of discharge: 08/13/23 Attending physician: Bib Landin Consults: 08/11/23 20:11 Consult Physician Routine Consulting Provider: Maximus Padron Consult Reason/Comments: covid,lungmass Do you want consulting provider notified?: Yes 08/12/23 15:19 Consult Physician Urgent Consulting Provider: Leda Clifford Consult Reason/Comments: covid , pna Do you want consulting provider notified?: Yes Primary care physician: Stated None Hospital Course: Final diagnosis Acute COVID-19 infection with acute COVID-19 pneumonia possibly Left hilar mass, possibly lung malignancy versus masslike consolidation Leukocytosis Elevated d-dimer with no evidence of PE on CT Hyponatremia Elevated AST, ALT Elevated pro calcitonin GI prophylaxis DVT prophylaxis Discharge disposition Patient is being discharged in a stable condition with guarded prognosis to home . Patient will follow-up with Dr. Reid to establish in the outpatient setting upon discharge. Patient is to continue with steroids and close outpatient follow-up with pulmonary as scheduled. PET scan will be arranged. Patient was also referred to vascular surgery for Rouleau flow bilateral lower extremities. Total time taken is greater than 35 minutes. Hospital course This is a 63-year-old female who was recently admitted with concerns of upper respiratory illness ongoing for the last 2-3 weeks and was found to have an elevated d-dimer as well as COVID-19. Patient has not received any vaccinations and there is strong suspicion for a lesion in the left upper lobe with a masslike consolidation as well as in the right perihilar area. Pulmonary had evaluated the patient recommending outpatient PET scan as patient wants to proceed with noninvasive measures first prior to a biopsy. Patient was continued on steroids and will continue on vitamin and zinc supplements. Patient needs to establish with a primary care provider and resources were provided. Patient has been cleared by consultations for discharge. Please refer to pulmonary notes for further HPI. Currently no reports of chest pain, shortness of breath, or palpitations. Patient is afebrile. No reports of nausea or vomiting and patient is tolerating diet. Patient will be discharged home. Guarded prognosis. Physical exam: Gen: This is a 63-year-old female who is awake, alert and oriented 3, well- developed, thin built, elderly appearing HEENT: Head is atraumatic, normocephalic. Pupils equal, round. Sclerae is anicteric. NECK: Supple. No JVD. No lymphadenopathy. No thyromegaly. LUNGS: Diminished breath sounds bilaterally with no wheezes or rhonchi. No intercostal retractions. HEART: Regular rate and rhythm. No murmur. ABDOMEN: Soft. Bowel sounds are present. No masses. No tenderness. EXTREMITIES: No pedal edema. No calf tenderness. NEUROLOGICAL: Patient is awake, alert and oriented x3. Cranial nerves 2 through 12 are grossly intact. Please refer to medication reconciliation sheet for a list of medications. The impression and plan of care has been dictated by Toshia Durham, Nurse Practitioner as directed. Dr. Mushtaq MD I have performed a history and examination and MDM of this patient, discussed the same with the dictator, and agree with the dictator's assessment and plan as written ,documented as a scribe. Based on total visit time, I have performed more than 50% of the visit. Patient Condition at Discharge: Fair Plan - Discharge Summary Discharge Rx Participant: No New Discharge Prescriptions: New dexAMETHasone [Decadron] 6 mg PO DAILY 8 Days #8 tablet guaiFENesin [Mucinex] 1,200 mg PO Q12HR 10 Days #20 tab Albuterol Inhaler [Ventolin Hfa Inhaler] 2 puff INHALATION RT-QID PRN 30 Days #1 each PRN Reason: Shortness Of Breath Or Wheezing Continue Acetylcysteine [Nac] 500 mg PO DAILY guaiFENesin-DM 100-10MG/5ML [Robitussin DM] 10 - 20 ml PO Q4H PRN MDD 60 ML PRN Reason: COUGH/CONGESTION Discharge Medication List Acetylcysteine [Nac] 500 mg PO DAILY 08/11/23 [History] guaiFENesin-DM 100-10MG/5ML [Robitussin DM] 10 - 20 ml PO Q4H PRN MDD 60 ML 08/11/23 [History] Albuterol Inhaler [Ventolin Hfa Inhaler] 2 puff INHALATION RT-QID PRN 30 Days #1 each 08/13/23 [Rx] dexAMETHasone [Decadron] 6 mg PO DAILY 8 Days #8 tablet 08/13/23 [Rx] guaiFENesin [Mucinex] 1,200 mg PO Q12HR 10 Days #20 tab 08/13/23 [Rx] Follow up Appointment(s)/Referral(s): Samanta Herring DO [STAFF PHYSICIAN] - 08/26/23 1:30 pm (evaluation for rouleaux flow of bilateral lower extremities) Lou Reid MD [STAFF PHYSICIAN] - 1 Week (Office stated to call the office for a new patient appointment. ) Maximus Padron MD [STAFF PHYSICIAN] - 08/20/23 2:00 pm Activity/Diet/Wound Care/Special Instructions: Activity Limited until follow-up Follow-up with primary care provider to establish Follow-up pulmonary outpatient Continue medications as prescribed Encourage fluids and rest and monitor for any fevers and treat with Tylenol and/or Motrin as needed Discharge/Stand Alone Forms: [facility] Area PCPs Discharge Disposition: HOME SELF-CARE
--- NOTE | 2023-08-16 21:48 | P.CONS ---
History of Present Illness - Reason for Consult Consult date: 08/13/23 oraliaid,Pna Requesting physician: Toshia Durham - Chief Complaint Cough shortness of breath x 2 weeks - History of Present Illness Patient is a 63-year-old female with a limited past medical history, presenting to the hospital for evaluation of increasing shortness of breath this patient symptom apparently has been going on for about 2 weeks and initially started with URI specially with nasal congestion and drainage sore throat and cough subsequent noticed having increasing shortness of breath and also have a cough which has been moderate intensity with occasional sputum denies any hemoptysis patient denies high-grade fever did have some chills on presentation to the hospital patient did have a fever of 101.4 F patient was mildly hypoxic at but not requiring any supplemental oxygen patient was not tachycardic or hypotensive patient did have white count of 12.2 with a left shift creatinine was normal liver enzymes mildly elevated procalcitonin 0.1 0 repeat 0.09 patient did tested positive for COVID influenza RSV testing was negative patient did hav e a chest x-ray background COPD changes with a right perihilar mass highly concerning for primary lung malignancy patient also have a CT of the chest medial left upper lobe masslike consolidation additional round right perihilar mass did not mention any groundglass opacities patient has been admitted to the hospital infectious he was consulted regarding COVID and concerning for possible mass/pneumonia at the time my evaluation this morning the patient is afebrile patient mention she is breathing more comfortably patient denies having any chest pain cough is decreased in intensity no nausea no vomiting no abdominal pain and no diarrhea patient insisting on going home Review of Systems Positive point and negatives has been mentioned in the HPI, complete review of systems was performed and all other systems are negative Past Medical History Past Medical History: No Reported History History of Any Multi-Drug Resistant Organisms: None Reported Past Surgical History: No Surgical Hx Reported Past Anesthesia/Blood Transfusion Reactions: Unable to Obtain Past Psychological History: No Psychological Hx Reported Smoking Status: Never smoker Past Alcohol Use History: None Reported Past Drug Use History: None Reported Medications and Allergies Home Medications Medication Instructions Recorded Confirmed Type Acetylcysteine [Nac] 500 mg PO DAILY 08/11/23 08/11/23 History guaiFENesin-DM 100-10MG/5ML 10 - 20 ml PO Q4H PRN MDD 60 ML 08/11/23 08/11/23 History [Robitussin DM] Albuterol Inhaler [Ventolin Hfa 2 puff INHALATION RT-QID PRN 30 08/13/23 Rx Inhaler] Days #1 each dexAMETHasone [Decadron] 6 mg PO DAILY 8 Days #8 tablet 08/13/23 Rx guaiFENesin [Mucinex] 1,200 mg PO Q12HR 10 Days #20 tab 08/13/23 Rx Allergies Allergy/AdvReac Type Severity Reaction Status Date / Time codeine Allergy Hallucinati Verified 08/11/23 12:44 ons doxycycline Allergy Rash/Hives Verified 08/11/23 12:44 Physical Exam Vitals: Vital Signs Temp Pulse Resp BP BP Pulse Ox 08/13/23 07:16 97.8 F 63 17 121/50 94 L 08/13/23 01:38 97.4 F L 64 18 98/60 92 L 08/12/23 19:45 97.5 F L 70 18 113/60 91 L 08/12/23 13:25 98.5 F 68 17 101/61 90 L Intake and Output 08/12/23 08/13/23 08/13/23 22:59 06:59 14:59 Other: Voiding Method Toilet # Voids 3 1 GENERAL DESCRIPTION: Elderly female lying in bed, no distress. No tachypnea or accessory muscle of respiration use. HEENT: Shows Pallor , no scleral icterus. Oral mucous membrane is dry. No pharyngeal erythema or thrush NECK: Trachea central, no thyromegaly. LUNGS: Unlabored breathing. Decreased intensity of breath sounds. No wheeze or crackle. HEART: S1, S2, regular rate and rhythm. No loud murmur ABDOMEN: Soft, no tenderness , EXTREMITIES: No edema of feet. SKIN: No rash, no masses palpable. NEUROLOGICAL: The patient is awake, alert, oriented x3, mood and affect normal. Results CBC & Chem 7: 08/13/23 06:36 08/13/23 06:36 Labs: Abnormal Lab Results - Last 24 Hours (Table) 08/12/23 08/12/23 08/12/23 Range/Units 10:04 10:04 16:19 D-Dimer 1.01 H (<0.60) mg/L FEU POC Glucose (mg/dL) 200 H (70-110) mg/dL Lactate Dehydrogenase 258 H (120-246) U/L 08/12/23 08/13/23 Range/Units 21:44 05:09 D-Dimer (<0.60) mg/L FEU POC Glucose (mg/dL) 170 H 125 H (70-110) mg/dL Lactate Dehydrogenase (120-246) U/L Assessment and Plan (1) Coronavirus infection Status: Acute Code(s): B34.2 - CORONAVIRUS INFECTION, UNSPECIFIED SNOMED Code(s): 275768178 Plan: 1patient presented to hospital with increasing shortness of breath which is likely multifactorial in this patient who did have evidence of COVID-19 infe ction however there is also evidence of left upper lobe masslike consolidation highly suspicious for malignancy, patient did have a normal procalcitonin level that will make bacterial pneumonia to be less likely 2-patient to continue the current supportive treatment for underlying COVID-19 with zinc ascorbic acid Lovenox as treated for possible COPD exacerbation no need for remdesivir or systemic antibiotic therapy 3-patient will need bronchoscopy and biopsy for better definition of underlying left upper lobe mass Multiple questions concern answered in layman term We will follow on clinical condition and cultures to further adjust medication if needed Thank you for this consultation we will follow the patient along with you Dictation was produced using [employer] dictation software. please excuse any grammatical, word or spelling errors. Time with Patient: Greater than 30
== END 2023-08-13 15:50 | disposition home or self-care (01) | DRG 177 ==
LOC: EC 12:33 → 4SSUR 20:11
PROVIDERS: ADMIT Hospitalist; ATTEND Hospitalist
PROC: 3E0333Z Introduction of Anti-inflammatory into Peripheral Vein, Percutaneous Approach (ICD-10-PCS; principal; 2023-08-12)
DX: U07.1 COVID-19 (principal); J12.82 Pneumonia due to coronavirus disease 2019; E22.2 Syndrome of inappropriate secretion of antidiuretic hormone; Q85.9 Phakomatosis, unspecified; C34.12 Malignant neoplasm of upper lobe, left bronchus or lung; J44.0 Chronic obstructive pulmonary disease with (acute) lower respiratory infection; F17.210 Nicotine dependence, cigarettes, uncomplicated; R79.89 Other specified abnormal findings of blood chemistry; R74.01 Elevation of levels of liver transaminase levels; Z28.310 Unvaccinated for COVID-19; Z88.5 Allergy status to narcotic agent; Z88.1 Allergy status to other antibiotic agents; Z79.899 Other long term (current) drug therapy
CPT/HCPCS: 36415; 71046; 71260; 80048; 80053; 83036; 83605; 83615; 83735; 83880; 84100; 84145; 85025; 85379; 87636; 93005; 93970; 94640; 96361; 96365; 96366; 96367; 96375; 99285

== ENCOUNTER → 2023-09-19 | Outpatient (CLI) | payer OTHER ==
--- NOTE | 2023-09-20 08:28 | PE ---
EXAMINATION TYPE: PET CT fusion skull to thigh DATE OF EXAM: 09/19/2023 CLINICAL INDICATION:Female, 63 years old with history of R91.8 ABNORMAL FINDINGS; TECHNIQUE: Following the intravenous administration of 10.4 mCi of F-18 FDG, whole body images are performed from the skull base to the midthigh. Images are reviewed on the computer in the coronal, a xial, and sagittal planes. Reconstructed rotating images are created on independent workstation and reviewed on the computer. A non-contrast CT is performed in conjunction with the PET scan. Glucose level 101 mg/dL CT DLP: 53 mGycm, Automated exposure control for dose reduction was used. COMPARISON: CT 08/11/2023., PET/CT None, FINDINGS: Mediastinal SUV mean is 1.2. Hepatic parenchyma SUV mean is 2.5. SKULL BASE AND NECK: No suspicious radiotracer activity. CHEST, MEDIASTINUM, AND HILAR REGION: * Right perihilar mass measuring 5.4 x 4.8 cm Max SUV 2.4. ABDOMEN AND PELVIS: No suspicious radiotracer activity. MUSCULOSKELETAL STRUCTURES: No suspicious radiotracer activity. OTHER CT: Fat-containing umbilical hernia. Atherosclerosis of the arterial vasculature. Lipomatous hy pertrophy of interatrial septum. Left adrenal lipid rich adenoma. IMPRESSION: Right perihilar mass measuring up to 5.4 cm with internal calcification with mildly elevated FDG acti vity. This courses along the right large airway. Further evaluation with bronchoscopy with questionab ly recommended. Finding could represent malignancy with hypometabolism such as bronchoalveolar carcin baron. Other etiologies remain possible.
== END | disposition home or self-care (01) ==
LOC: RADPETMAIN 12:53
PROVIDERS: ATTEND Internal Medicine Critical Care Medicine
DX: R91.8 Other nonspecific abnormal finding of lung field (principal)
CPT/HCPCS: 78815; A9552

== ENCOUNTER → 2024-03-11 | Outpatient (CLI) | payer MEDICARE, OTHER ==
[2024-03-11 11:04] LABS: African American GFR (CKD) >90 (>60 ml/min/1.73 sqM); Blood Urea Nitrogen 14 mg/dL (7-17); Non-African American GFR(CKD) >90 (>60 ml/min/1.73 sqM)
--- NOTE | 2024-03-11 11:46 | CT ---
EXAMINATION TYPE: CT chest w con DATE OF EXAM: 03/11/2024 COMPARISON: 08/11/2023 HISTORY: 64-year-old female prior abn CT; R91.8 OTHER NONSPECIFIC ABNORMAL FINDING OF LUNG F TECHNIQUE: Contiguous axial scanning of the chest after the administration of 100 mL of Isovue 300. Coronal/sagittal reconstructions performed. CT DLP: 222.2mGycm. Automatic exposure control utilized for a dose reduction. FINDINGS: Heart normal sizer without pericardial effusion. Mild proximal LAD coronary artery calcifications are present. Suspect a stable 3.2 cm lipoma lateral right breast. Aorta normal caliber with conventional arch vessel branching anatomy. No thoracic lymphadenopathy by CT size criteria. Some strandy scarring or atelectasis of the lung bases. Some minimal strandy atelectasis or scar remains along the anterior medial right midlung. The previou s bilateral patchy infiltrates have essentially resolved. Mild emphysematous change. Stable circumscribed, posterior right perihilar mass measuring 5.3 cm containing calcification and so me minimal interspersed fat density as well. This continues to abut the posterior wall of the right u pper lobe bronchus and posterior wall of the bronchus intermedius. Visualized upper abdomen shows a stable 1 cm nodule of the right adrenal gland likely a small 1.0 cm cortical cyst lateral upper pole left kidney. Bones: No osseous destructive process. IMPRESSION: 1. Stable posterior right perihilar mass measuring 5.3 cm. Some internal calcification and minimal in terspersed fat density. Given stability and internal density characteristics, a large hamartoma is a consideration. Consider surgical evaluation given large size. The lesion should be amenable to bronch oscopic biopsy. 2. COPD with mild emphysema. The previous infiltrates on 08/11/2023 have largely resolved. 3. Indeterminate 1.0 cm nodule right adrenal gland remains unchanged for 7 months.
== END | disposition home or self-care (01) ==
LOC: RADCTMAIN 10:35
PROVIDERS: ATTEND Internal Medicine Critical Care Medicine
DX: J44.9 Chronic obstructive pulmonary disease, unspecified (principal); R91.8 Other nonspecific abnormal finding of lung field; J43.9 Emphysema, unspecified
CPT/HCPCS: 82565; 84520; 71260; Q9967

== ENCOUNTER → 2024-09-01 | Outpatient (CLI) | payer MEDICARE ==
[2024-09-01 12:17] LABS: African American GFR (CKD) >90 (>60 ml/min/1.73 sqM); Blood Urea Nitrogen 13 mg/dL (7-17); Non-African American GFR(CKD) 83 (>60 ml/min/1.73 sqM)
--- NOTE | 2024-09-02 19:54 | CT ---
EXAMINATION TYPE: CT chest w con DATE OF EXAM: 09/01/2024 1:00 PM COMPARISON: None. CLINICAL INDICATION: Female, 64 years old with history of R91.8 OTHER NONSPECIFIC ABNORMAL FINDING OF LUNG F, f/u lung mass TECHNIQUE: Axial images were obtained at 5 mm thick sections. Reconstructed images are reviewed on [employer] computer in the coronal plane. Contrast used:100ml mL of Isovue 300 with IV Contrast, (none if empty) Oral contrast used: (none if empty) CT DLP: 122.8 mGycm, Automated exposure control for dose reduction was used. FINDINGS: Portion of the thyroid visualized is normal. There is a 5.5 cm lung mass at the right posterior hilar level. Previous measurement 5.3 cm. There is some mild emphysematous change present. No enlarged mediastinal or hilar adenopathy is evident. The ascending aorta diameter at the level o f the main pulmonary artery is 3.3 cm. The main pulmonary artery diameter at the bifurcation is 2.[address] sections are obtained through the upper abdomen. The 1 cm density at the level of the righ t adrenal gland appears stable. IMPRESSION: 1. Minimal enlargement of the right hilar mass currently measuring 5.5 cm. [facility], , 09/02/2024 7:52 PM
== END | disposition home or self-care (01) ==
LOC: RADCTMAIN 11:37
PROVIDERS: ATTEND Internal Medicine Critical Care Medicine
DX: R91.8 Other nonspecific abnormal finding of lung field (principal)
CPT/HCPCS: 82565; 84520; 71260; 36415; Q9967

== ENCOUNTER 2024-12-07 11:56 | Day surgery (SDC) | payer MEDICARE ==
[~2024-12-07 11:56] MED LIST: HYDROmorphone 0.5 MG/0.5 ML SYRINGE IVP PRN; LACTATED RINGERS 1,000 ML IV SCH; LIDOCAINE 1% (10MG/ML) FOR IV START INTRADERMA PRN; MIDAZOLAM 2 MG/2 ML VIAL IV PRN; fentaNYL (PF) 50 MCG/ML 2 ML AMP IVP PRN
[2024-12-07] MEDS: DEXAMETHASONE SOD PHOSPHATE 4 MG/ML 1 ML VIAL IV ONE (12:26)
[2024-12-07] MEDS: LACTATED RINGERS 1,000 ML IV SCH (12:26)
[2024-12-07] MEDS: ONDANSETRON 4 MG/2 ML VIAL IVP ONE (12:26)
[2024-12-07] MEDS: IV FLUID CONTINUATION 1,000 ML IV ONE (12:27)
[2024-12-07] MEDS ORDERED: PROPOFOL 10 MG/ML 20 ML VIAL IV ONE (12:44)
[2024-12-07] MEDS ORDERED: fentaNYL (PF) 50 MCG/ML 2 ML AMP ONE (12:44)
[2024-12-07] MEDS ORDERED: SUCCINYLCHOLINE CHLORIDE 200 MG/10 ML VIAL IV ONE (12:44)
[2024-12-07] MEDS ORDERED: LIDOCAINE 1% INJ 10MG/ML (20 ML MDV) ONE (12:44)
[2024-12-07] MEDS ORDERED: ePHEDrine 50 MG/ML 1 ML VIAL ONE (12:44)
[2024-12-07] MEDS ORDERED: PHENYLEPHRINE-0.9% NACL SYG 1,000 MCG/10 ML SYRINGE ONE (12:44)
--- NOTE | 2024-12-07 13:42 | P.PCN ---
Date of Procedure: 12/07/24 Preoperative Diagnosis: Right hilar mass Postoperative Diagnosis: Right hilar mass Procedure(s) Performed: Endobronchial ultrasound, transbronchial needle aspirate of the left hilar mass with EBUS guidance. Anesthesia: VENKATA Surgeon: Maximus Padron Estimated Blood Loss (ml): 0 Pathology: other Condition: stable Disposition: same day Operative Findings: This procedure was done in the endoscopy suite. The patient was intubated in the usual fashion by a #8 orotracheal tube. The patient was adequately oxygenated and ventilated. The patient process was performed by [employer] SU[employer]VIS[employer]. After securing the airway, the flexible endoscope was introduced through the orotracheal tube and the airway inspection was done. Distal trachea was within normal limits. Alanna was sharp in the mid lung. Examination of the airways included bilateral mainstem bronchi, right upper lobe bronchus, bronchus and medius, right middle lobe bronchus, right lower lobe bronchus elevated stent segments on the right and examination of the left side into the left mainstem bronchus, left upper lobe bronchus and the left lower lobe bronchus and the various 8 segments on the left. No endobronchial tumors or abnormalities identified. Mucosa was within normal limits Impression bronchoscope was removed and ultrasound was introduced. Careful inspection of the mediastinal stations showed no pathologic lymphadenopathy. The right infrahilar/posterior to the bronchus intermedius, there was a heterogeneous masslike structure that was measuring more than 4 cm in size. The lesion itself had various echogenicity is within the center and probably some calcification. Using a 22-gauge needle, transbronchial needle aspirate of the right hilar mass was done and a total of 6 passes were taken. No endobronchial bleeding. The endobronchial ultrasound was removed. The flexible grasper was introduced and therapeutic airway suctioning was done. The patient was extubated and transferred to recovery in stable condition.
[2024-12-07 13:53] VITALS: TEMP 97.2
[2024-12-07 14:35] VITALS: RESP 18
[2024-12-07 14:55] VITALS: BP 116/63; PULSE 74
== END 2024-12-07 15:04 | disposition home or self-care (01) ==
LOC: ORWHC2ENDO 11:56
PROVIDERS: ATTEND Internal Medicine Critical Care Medicine
DX: R91.8 Other nonspecific abnormal finding of lung field (principal); Z87.891 Personal history of nicotine dependence; Z88.5 Allergy status to narcotic agent; Z88.1 Allergy status to other antibiotic agents
CPT/HCPCS: 88305; 31629; 31653; J0330; J1100; J2405; J2003; J3010; J2704; J2371